=== PATIENT | female | born 2000 | race Caucasian/White ===

== ENCOUNTER 2025-03-02 12:20 | Emergency (ER) | payer OTHER ==
[~2025-03-02] VITALS: Ht 172.7 cm; Wt 96.2 kg
[2025-03-02 13:21] LABS: IMMATURE GRANULOCYTE ABSOLUTE 0.02 K/uL (0-1); NUCLEATED RED BLOOD CELLS 0.0 % (0.0-0.19); PLATELET COUNT (AUTO) 225 K/uL (130-400); RED BLOOD CELL COUNT(AUTO) 4.35 MIL/uL (4.00-5.50); RED CELL DISTRIBUTION WIDTH 13.2 % (11.0-15.5); WHITE BLOOD COUNT (AUTO) 10.0 K/uL (4.8-10.8)
[2025-03-02 13:43] LABS: CREATININE 0.6 mg/dL (0.5-1.0); GLOMERULAR FILTR. RATE CALC 130.0 mL/min (>90); GLUCOSE,RANDOM 86.0 mg/dL (70-105); SODIUM SERUM 137.0 mmol/L (136-145); UREA NITROGEN, BLOOD 5.0 mg/dL (7-18)
[2025-03-02 14:08] LABS: ASPARTATE AMINOTRANSFERASE 14.0 U/L (10-37); TOTAL PROTEIN, SERUM 7.7 g/dL (6.0-8.3)
--- NOTE | 2025-03-02 14:08 | HMCIMG ---
EXAM: US Obstetrical, Complete <14 weeks CLINICAL HISTORY: confir, IUP TECHNIQUE: Transabdominal imaging of the maternal pelvis and a <14 week gestation with image documentation. COMPARISON: None provided. FINDINGS: GESTATION: Gestational sac measures 2.7 cm, corresponding to 6 weeks 5 days. CRL measures 1.3 cm, corresponding to 7 weeks 4 days. Yolk sac present. heart rate 156 bpm. Gestational age of 7 weeks and 1 day. UTERUS: Measures 9.9 x 5.8 x 6 cm. Unremarkable. No myometrial mass. Single intrauterine . CERVIX: Closed. Unremarkable. OVARIES: Unremarkable. No mass. The right ovary measures 2.1 x 1.6 x 1.6 cm. The left ovary measures 2.5 x 1.7 x 2.3 cm. Bilateral venous and arterial flow is maintained. FREE FLUID: No free fluid. IMPRESSION: 1. Single live intrauterine at 7 weeks 1 day gestational age with normal heart rate. /[place]
[2025-03-02 14:33] LABS: APPEARANCE,URINE CLEAR (CLEAR); GLUCOSE, URINE (UA) NEGATIVE (NEGATIVE); LEUKOCYTE ESTERASE ,URINE NEGATIVE Leu/uL (NEGATIVE); NITRATE,URINE NEGATIVE (NEGATIVE); OCCULT BLOOD,URINE NEGATIVE (NEGATIVE)
[2025-03-02 14:40] LABS: ADD UA MICROSCOPIC NO
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
[2025-03-02 15:12] VITALS: BP 137/79; PULSE 67; RESP 18; TEMP 99; O2SAT 100
== END 2025-03-02 15:12 | disposition home or self-care (01) ==
LOC: EDH 12:20
DX: O9A.211 Injury, poisoning and certain other consequences of external causes complicating pregnancy, first trimester (principal); S39.91XA Unspecified injury of abdomen, initial encounter; Z3A.01 Less than 8 weeks gestation of pregnancy; Y04.2XXA Assault by strike against or bumped into by another person, initial encounter; Y93.89 Activity, other specified; Y92.128 Other place in nursing home as the place of occurrence of the external cause; Y99.0 Civilian activity done for income or pay
CPT/HCPCS: 36415; 76801; 80048; 80076; 81003; 84702; 85025; 86850; 86900; 86901; 99284